=== PATIENT | female | born 2000 | race Caucasian/White ===

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

== ENCOUNTER 2020-02-11 23:44 | Emergency (ER) | payer OTHER, MEDICAID ==
[~2020-02-11] VITALS: Ht 160 cm; Wt 72.7 kg
[~2020-02-11 23:44] MED LIST: HYDR-3584 PO
[2020-02-11] MEDS ORDERED: LACTATED RINGERS 1,000 ML IV ONE (23:58)
[2020-02-12] MEDS ORDERED: ONDANSETRON 4 MG/2 ML (SDV) Z0FRAN IVP ONE
[2020-02-12] MEDS ORDERED: FAMOTIDINE 20MG/2ML IV (PEPCID) IVP ONE
[2020-02-12] MEDS ORDERED: PANTOPRAZOLE 40 MG (PROTONIX) VIAL IV ONE (00:15)
[2020-02-12 00:22] LABS: BASOPHILS # (AUTO) 0.1 10^3/uL (0.0-0.1); BASOPHILS % (AUTO) 0 % (0-10); EOSINOPHILS # (AUTO) 0.2 10^3/uL (0.0-0.3); EOSINOPHILS % (AUTO) 2 % (0-10); HEMATOCRIT 44 % (35-52); HEMOGLOBIN 14.4 G/DL (11.5-16.0); LYMPHOCYTES # (AUTO) 2.5 X 10^3 (1.0-4.0); LYMPHOCYTES % (AUTO) 18 % (12-44); MEAN CORPUSCULAR HEMOGLOBIN 27 PG (25-34); MEAN CORPUSCULAR HGB CONC 33 G/DL (32-36); MEAN CORPUSCULAR VOLUME 84 FL (80-99); MEAN PLATELET VOLUME 11.7 FL (7.4-10.4); MONOCYTES # (AUTO) 1.1 X 10^3 (0.0-1.0); MONOCYTES % (AUTO) 8 % (0-12); NEUTROPHILS # (AUTO) 9.9 X 10^3 (1.8-7.8); NEUTROPHILS % (AUTO) 72 % (42-75); PLATELET COUNT 351 10^3/uL (130-400); RED CELL DISTRIBUTION WIDTH 14.8 % (10.0-14.5); WHITE BLOOD COUNT 13.7 10^3/uL (4.3-11.0)
[2020-02-12 00:24] LABS: BILIRUBIN,URINE NEGATIVE (NEGATIVE); CLARITY,URINE CLEAR; COLOR,URINE YELLOW; GLUCOSE, URINE (UA) NEGATIVE (NEGATIVE); KETONES,URINE NEGATIVE (NEGATIVE); LEUKOCYTE ESTERASE ,URINE NEGATIVE (NEGATIVE); NITRITE,URINE NEGATIVE (NEGATIVE); PROTEIN,URINE 1+ (NEGATIVE)
[2020-02-12 00:27] LABS: ALBUMIN 4.4 GM/DL (3.2-4.5); CHLORIDE 108 MMOL/L (98-107); POTASSIUM 4.3 MMOL/L (3.6-5.0); SODIUM 140 MMOL/L (135-145)
[2020-02-12 00:29] LABS: CALCIUM 9.7 MG/DL (8.5-10.1)
[2020-02-12 00:30] LABS: GLUCOSE 88 MG/DL (70-105); TOTAL PROTEIN 7.6 GM/DL (6.4-8.2)
[2020-02-12 00:31] LABS: CARBON DIOXIDE 15 MMOL/L (21-32)
[2020-02-12 00:32] LABS: BILIRUBIN,TOTAL 0.3 MG/DL (0.1-1.0)
[2020-02-12 00:34] LABS: ALKALINE PHOSPHATASE 84 U/L (40-136); CREATININE SERUM 1.03 MG/DL (0.60-1.30); GFR ESTIMATED > 60
[2020-02-12 00:35] LABS: BUN/CREATININE RATIO 7
[2020-02-12 00:37] LABS: ALANINE AMINOTRANSFERASE 16 U/L (0-55)
[2020-02-12 00:38] LABS: BACTERIA,URINE TRACE /HPF; SQUAMOUS EPITHELIAL CELL,UR 25-50 /HPF
[2020-02-12 00:39] LABS: TRICHOMONAS,URINE FEW /HPF
[2020-02-12 00:40] LABS: AMPHETAMINE SCREEN, URINE NEGATIVE (NEGATIVE); BARBITURATE SCREEN URINE NEGATIVE (NEGATIVE); BENZODIAZEPINES SCREEN URINE POSITIVE (NEGATIVE); CANNABINOID SCREEN, URINE POSITIVE (NEGATIVE); COCAINE SCREEN URINE NEGATIVE (NEGATIVE); METHADONE STAT NEGATIVE (NEGATIVE); METHAMPHETAMINE SCREEN URINE S NEGATIVE (NEGATIVE); OPIATE SCREEN URINE NEGATIVE (NEGATIVE); OXYCODONE STAT NEGATIVE (NEGATIVE); PROPOXYPHENE STAT NEGATIVE (NEGATIVE); TRICYCLIC ANTIDEPRESSANTS SCRE NEGATIVE (NEGATIVE)
--- NOTE | 2020-02-12 00:43 | ED Psychosocial ---
General Chief Complaint: Overdose Stated Complaint: OVERDOSE Nursing Triage Note: BROUGHT IN BY [facility] MOTRIN O.D. BOTTLE OF 200MG MOTRIN TAB'S EMPTY (100 COUNT) PT UNSURE OF ACTUAL AMOUNT INGESTED. REPORTS INGESTION TIME APPROX. 2144 Source: patient Exam Limitations: no limitations History of Present Illness Date Seen by Provider: Feb 11, 2020 Time Seen by Provider: 23:47 Initial Comments This 19-year-old young lady presents to the emergency room with suicidal ideation and overdose of ibuprofen. She took up to 100 tablets of pvjk-til-wociijj ibuprofen in an attempt to harm herself. She reports increasing depression and a "being over it". She did intend to end her life. She vomited twice after taking the pills. Ingestion was approximately 2 hours prior to arrival at around 21:45. She complains of persistent upset stomach at this time. She denies ingesting any other substances including illicit drug or alcohol use. Allergies and Home Medications Allergies Coded Allergies: No Known Drug Allergies (Unverified , 10/27/19) Patient Home Medication List Home Medication List Reviewed: Yes Review of Systems Constitutional: no symptoms reported EENTM: see HPI Respiratory: no symptoms reported Cardiovascular: no symptoms reported Gastrointestinal: see HPI Genitourinary: no symptoms reported : No LMP: Jan 15, 2020 Musculoskeletal: no symptoms reported Skin: no symptoms reported Psychiatric/Neurological: No Symptoms Reported Past Eyooqrb-Lvnjql-Mhursi Hx Past Med/Social Hx: Reviewed Nursing Past Med/Soc Hx Patient Social History Alcohol Use: Denies Use Recreational Drug Use: No Smoking Status: Current Everyday Smoker Type Used: Cigarettes 2nd Hand Smoke Exposure: No Recent Foreign Travel: No Contact w/Someone Who Travel: No Recent Infectious Disease Expo: No Recent Hopitalizations: No Physical Abuse: No Sexual Abuse: No Mistreated: No Fear: No Immunizations Up To Date Tetanus Booster (TDap): Unknown Seasonal Allergies Seasonal Allergies: No Past Medical History Surgeries: No Respiratory: No Cardiac: No Neurological: No : No Genitourinary: No Gastrointestinal: No Musculoskeletal: No Endocrine: No HEENT: No Cancer: No Psychosocial: Yes Suicide Attempts, Depression Integumentary: No Blood Disorders: No Adverse Reaction/Blood Tranf: No Physical Exam Vital Signs - First Documented 02/11/20 02/12/20 23:44 06:16 Temp 36.6 Pulse 96 Resp 20 B/P (MAP) 123/83 Pulse Ox 98 O2 Delivery Room Air Capillary Refill : Height, Weight, BMI Height: '" Weight: lbs. oz. kg; 28.00 BMI Method: General Appearance: WD/WN, mild distress (dry heaving) HEENT: PERRL/EOMI, normal ENT inspection, pharynx normal Neck: normal inspection Respiratory: lungs clear, normal breath sounds, no respiratory distress, no accessory muscle use Cardiovascular: regular rate, rhythm, no edema, no murmur Gastrointestinal: soft Extremities: no pedal edema Neurologic/Psychiatric: hand laster II-XII nml as tested, no motor/sensory deficits, alert, oriented x 3, other (tearful, admits to suicidal ideation) Thoughts/Hallucinations: no apparent hallucination Skin: normal color, warm/dry Progress/Results/Core Measures Results/Orders Lab Results Laboratory Tests Test 02/11/20 00:05 02/11/20 23:45 Range/Units Urine Color YELLOW Urine Clarity CLEAR Urine pH 6.0 5-9 Urine Specific [place] 1.020 1.016-1.022 Urine Protein 1+ H NEGATIVE Urine Glucose (UA) NEGATIVE NEGATIVE Urine Ketones NEGATIVE NEGATIVE Urine Nitrite NEGATIVE NEGATIVE Urine Bilirubin NEGATIVE NEGATIVE Urine Urobilinogen 0.2 < = 1.0 MG/DL Urine Leukocyte Esterase NEGATIVE NEGATIVE Urine RBC (Auto) NEGATIVE NEGATIVE Urine RBC NONE /HPF Urine WBC 5-10 H /HPF Urine Squamous Epithelial Cells 25-50 H /HPF Urine Crystals NONE /LPF Urine Bacteria TRACE /HPF Urine Casts NONE /LPF Urine Mucus NEGATIVE /LPF Urine Trichomonas FEW H /HPF Urine Culture Indicated NO Urine Opiates Screen NEGATIVE NEGATIVE Urine Oxycodone Screen NEGATIVE NEGATIVE Urine Methadone Screen NEGATIVE NEGATIVE Urine Propoxyphene Screen NEGATIVE NEGATIVE Urine Barbiturates Screen NEGATIVE NEGATIVE Ur Tricyclic Antidepressants Screen NEGATIVE NEGATIVE Urine Phencyclidine Screen NEGATIVE NEGATIVE Urine Amphetamines Screen NEGATIVE NEGATIVE Urine Methamphetamines Screen NEGATIVE NEGATIVE Urine Benzodiazepines Screen POSITIVE H NEGATIVE Urine Cocaine Screen NEGATIVE NEGATIVE Urine Cannabinoids Screen POSITIVE H NEGATIVE White Blood Count 13.7 H 4.3-11.0 10^3/uL Red Blood Count 5.27 4.35-5.85 10^6/uL Hemoglobin 14.4 11.5-16.0 G/DL Hematocrit 44 35-52 % Mean Corpuscular Volume 84 80-99 FL Mean Corpuscular Hemoglobin 27 25-34 PG Mean Corpuscular Hemoglobin Concent 33 32-36 G/DL Red Cell Distribution Width 14.8 H 10.0-14.5 % Platelet Count 351 130-400 10^3/uL Mean Platelet Volume 11.7 H 7.4-10.4 FL Neutrophils (%) (Auto) 72 42-75 % Lymphocytes (%) (Auto) 18 12-44 % Monocytes (%) (Auto) 8 0-12 % Eosinophils (%) (Auto) 2 0-10 % Basophils (%) (Auto) 0 0-10 % Neutrophils # (Auto) 9.9 H 1.8-7.8 X 10^3 Lymphocytes # (Auto) 2.5 1.0-4.0 X 10^3 Monocytes # (Auto) 1.1 H 0.0-1.0 X 10^3 Eosinophils # (Auto) 0.2 0.0-0.3 10^3/uL Basophils # (Auto) 0.1 0.0-0.1 10^3/uL Sodium Level 140 135-145 MMOL/L Potassium Level 4.3 3.6-5.0 MMOL/L Chloride Level 108 H 98-107 MMOL/L Carbon Dioxide Level 15 L 21-32 MMOL/L Anion Gap 17 H 5-14 MMOL/L Blood Urea Nitrogen 7 7-18 MG/DL Creatinine 1.03 0.60-1.30 MG/DL Estimat Glomerular Filtration Rate > 60 BUN/Creatinine Ratio 7 Glucose Level 88 70-105 MG/DL Calcium Level 9.7 8.5-10.1 MG/DL Corrected Calcium 9.4 8.5-10.1 MG/DL Total Bilirubin 0.3 0.1-1.0 MG/DL Aspartate Amino Transf (AST/SGOT) 20 5-34 U/L Alanine Aminotransferase (ALT/SGPT) 16 0-55 U/L Alkaline Phosphatase 84 40-136 U/L Total Protein 7.6 6.4-8.2 GM/DL Albumin 4.4 3.2-4.5 GM/DL TSH [place] Testing 0.90 0.35-4.94 UIU/ML Serum Test, Qualitative NEGATIVE NEGATIVE Salicylates Level < 5.0 L 5.0-20.0 MG/DL Acetaminophen Level < 10 L 10-30 UG/ML Serum Alcohol < 10 <10 MG/DL My Orders Orders - ANIBAL JESUS MD Ondansetron Injection (Zofran Injectio (02/12/20 00:00) Famotidine Injection (Pepcid Injection) (02/12/20 00:00) Ed Iv/Invasive Line Start (02/11/20 23:58) Lactated Ringers (Lr 1000 Ml Iv Solution (02/11/20 23:58) Acetaminophen (02/11/20 23:58) Alcohol (02/11/20 23:58) Cbc With Automated Diff (02/11/20 23:58) Comprehensive Metabolic Panel (02/11/20 23:58) Drug Screen Stat (Urine) (02/11/20 23:58) Hcg,Qualitative Serum (02/11/20 23:58) Thyroid Analyzer (02/11/20 23:58) Ua Culture If Indicated (02/11/20 23:58) Pantoprazole Injection (Protonix Injecti (02/12/20 00:15) Salicylate (02/12/20 02:11) Metronidazole Tablet (Flagyl Tablet) (02/12/20 04:45) Medications Given in ED Current Medications Medications Dose Ordered Sig/[place] Route Start Time Stop Time Status Last Admin Dose Admin Famotidine 20 mg ONCE ONCE IVP 02/12/20 00:00 02/12/20 00:01 DC 02/12/20 00:16 20 MG Lactated Ringer's 1,000 ml @ 0 mls/hr Q0M ONCE IV 02/11/20 23:58 02/12/20 00:01 DC 02/12/20 00:17 0 MLS/HR Metronidazole 2,000 mg ONCE ONCE PO 02/12/20 04:45 02/12/20 04:46 DC 02/12/20 05:31 2,000 MG Ondansetron HCl 8 mg ONCE ONCE IVP 02/12/20 00:00 02/12/20 00:01 DC 02/12/20 00:16 8 MG Pantoprazole 40 mg ONCE ONCE IV 02/12/20 00:15 02/12/20 00:16 DC 02/12/20 00:17 40 MG Vital Signs/I&O 02/11/20 02/12/20 23:44 06:16 Temp 36.6 36.6 Pulse 96 81 Resp 20 16 B/P (MAP) 123/83 Pulse Ox 98 O2 Delivery Room Air Room Air Progress Progress Note : Time: 05:09 Progress Note Patient's vomiting was treated with Zofran. GI prophylaxis was provided with Pepcid and Protonix. Patient's GI symptoms resolved and she was eventually able to eat and drink. Patient initially was not interested in an inpatient admission. However, this is her second overdose since October and she freely admits that this was a suicide attempt. I therefore believe she needs inpatient admission. The [facility] screening service was employed. After speaking with the screener she elected a voluntary admission to [facility]. In the meantime she received a liter of IV fluid and her GI symptoms resolved. Poison control was contacted during initial assessment and advised symptomatic care and a 6 hour observation from time of ingestion. Trichomonas was noted in the patient's urine and 2 g of Flagyl was administered for treatment. Departure Impression Primary Impression: Suicide attempt Additional Impressions: Intentional ibuprofen overdose Qualified Codes: T39.312A - Poisoning by propionic acid derivatives, intentional self-harm, initial encounter Trichomoniasis, urogenital Disposition: 65 XFER TO PSYCH HOSP/UNIT Condition: Stable Transfer Transfer Reason: Exceeds level of care Time Spoke to Accepting Phy: 04:40 Transfer Progress Notes Transfer accepted by Dr. Garibay at the [facility] at [facility]. Transfer Time: 06:16 Transfer Facility: [facility] Method of Transfer: [facility] Departure-Patient Inst. Referrals: NO,LOCAL PHYSICIAN (PCP/Family) Primary Care Physician ANIBAL JESUS MD Feb 12, 2020 00:42
[2020-02-12 00:46] LABS: ACETAMINOPHEN < 10 UG/ML (10-30)
--- NOTE | 2020-02-12 01:59 | NUR ---
LABS, VS, FACE SHEET, DOCUMENTATION FAXED TO [facility].
[2020-02-12] MEDS ORDERED: metroNIDAZOLE 500 MG (FLAGYL) TAB PO ONE (04:45)
--- NOTE | 2020-02-12 05:30 | NUR ---
FOOD TRAY PROVIDED BY HS.
== END 2020-02-12 06:16 ==
LOC: EDUNIT# 23:44 → ER 23:47
DX: T14.91XA Suicide attempt, initial encounter (principal); T39.312A Poisoning by propionic acid derivatives, intentional self-harm, initial encounter; A59.03 Trichomonal cystitis and urethritis; F17.210 Nicotine dependence, cigarettes, uncomplicated; X58.XXXA Exposure to other specified factors, initial encounter
CPT/HCPCS: 80053; 80306; 81000; 84443; 84703; 85025; 99285; G0480 ×3; 36415; 80320; 80329